=== PATIENT | male | born 1980 ===

== ENCOUNTER 2017-09-14 06:19 | Emergency (ER) | payer MEDICAID ==
[2017-09-14 06:19] VITALS: BMI 36.3
[2017-09-14 06:48] VITALS: RESP 20
--- NOTE | 2017-09-14 08:03 | C.PDOC ---
History Of Present Illness 36 y/o male presents to ED with complaints of congestion, body aches, subjective fever and sore throat for 4 days. Patient states he has been taking ibuprofen with no improvement, reports none taken today. Patient denies abdominal pain, chest pain, neck pain, change in bowel movements or any other complaints at this time. No flu vaccine this year. Time Seen by Provider: 09/14/17 07:32 Chief Complaint (Nursing): Flu-like Symptoms History Per: Patient History/Exam Limitations: no limitations Onset/Duration Of Symptoms: Days Current Symptoms Are (Timing): Still Present Associated Symptoms: Sore Throat, Nasal Congestion Past Medical History Reviewed: Historical Data, Nursing Documentation, Vital Signs Vital Signs: Last Vital Signs Temp 98.9 F 09/14/17 09:16 Pulse 92 H 09/14/17 09:16 Resp 20 09/14/17 09:16 BP 143/80 09/14/17 09:16 Pulse Ox 98 09/14/17 10:06 - Medical History PMH: HTN Surgical History: Appendectomy - [facility] Procedures TETANUS TOXOID ADMINIST (09/28/14) Family History: States: No Known Family Hx - Social History Hx Tobacco Use: No Hx Alcohol Use: No Hx Substance Use: No - Immunization History Hx Tetanus Toxoid Vaccination: No Hx Influenza Vaccination: No Hx Pneumococcal Vaccination: No Review Of Systems Constitutional: Positive for: Fever. Negative for: Chills ENT: Positive for: Nose Congestion Cardiovascular: Negative for: Chest Pain Respiratory: Negative for: Cough, Shortness of Breath Musculoskeletal: Negative for: Neck Pain Skin: Negative for: Rash Physical Exam - Physical Exam Appears: Non-toxic, No Acute Distress Skin: Warm, Dry, No Rash Head: Atraumatic, Normacephalic Eye(s): bilateral: Normal Inspection, EOMI Ear(s): Left: TM Erythema, Right: Normal Nose: Normal Oral Mucosa: Moist Throat: Normal, No Erythema, No Exudate, No Drooling Neck: Normal, Normal ROM, Supple Chest: Symmetrical Cardiovascular: Rhythm Regular Respiratory: Normal Breath Sounds, No Accessory Muscle Use, No Rales, No Rhonchi , No Wheezing Gastrointestinal/Abdominal: Soft, No Tenderness, No Guarding, No Rebound Extremity: Normal ROM Neurological/Psych: Oriented x3, Normal Speech, Normal Cognition ED Course And Treatment O2 Sat by Pulse Oximetry: 98 (RA) Pulse Ox Interpretation: Normal Progress Note: Amoxicillin and Ibuprofen administered. On re-evalaution, patient is resting comfortably, and is in no acute distress. Patient was instructed to follow up with PMD in 1-2 days for further evaluation. Disposition - Disposition Disposition: HOME/ ROUTINE Disposition Time: 08:25 Condition: STABLE Additional Instructions: Follow up with your primary medical doctor or clinic in 2-5 days for further evaluation. Take medications as prescribed. Return to the emergency department at any time if symptoms persist or worsen. Vaya a valenzuela mdico o la clnica en 2-5 jeffries sin falta, para mas evaluacin. [place] los medicamentos tyra indicado. Volver a la david de emergencia en cualquier momento si los sntomas persisten o empeoran. 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 - Scribe Statement The provider has reviewed the documentation as recorded by the Claribelibjoshua Zendejas All medical record entries made by the Claribelibjoshua were at my direction and personally dictated by me. I have reviewed the chart and agree that the record accurately reflects my personal performance of the history, physical exam, medical decision making, and the department course for this patient. I have also personally directed, reviewed, and agree with the discharge instructions and disposition.
[2017-09-14] MEDS ORDERED: Amoxicillin-Clav 500-125 mg Tab PO ONE (09:10)
[2017-09-14 09:18] VITALS: BP 143/80; PULSE 92; TEMP 98.9
[2017-09-14 10:04] VITALS: O2SAT 98
== END 2017-09-14 09:17 | disposition home or self-care (01) ==
LOC: C.ER 06:19
DX: H66.92 Otitis media, unspecified, left ear (principal)

== ENCOUNTER 2018-10-07 16:47 | Emergency (ER) | payer BC, MEDICAID ==
[2018-10-07 16:52] VITALS: BMI 46.7
[2018-10-07 16:54] VITALS: TEMP 98.7; O2SAT 98
[2018-10-07] MEDS ORDERED: Amoxicillin-Clav 875-125 mg Tab PO STA (17:35)
--- NOTE | 2018-10-07 17:37 | C.PDOC ---
History Of Present Illness 37 yo male come in for evaluation of left 4th finger injury sustained yesterday after had blunt trauma " metal fell onto my fingers". Pt noted some bruising over Left 4th finger, pain over the tip. Denies deformity, weakness, sensory or vascular deficit, denies open wounds. Comfortable, not in any apparent distress. Time Seen by Provider: 10/07/18 16:58 Chief Complaint (Nursing): Finger,Hand,&Wrist History Per: Patient Past Medical History Reviewed: Historical Data, Nursing Documentation, Vital Signs Vital Signs: Last Vital Signs Temp 98.7 F 10/07/18 16:52 Pulse 83 10/07/18 16:52 Resp 18 10/07/18 16:52 BP 155/83 H 10/07/18 16:52 Pulse Ox 98 10/07/18 16:52 - Medical History PMH: HTN Denies: Chronic Kidney Disease Surgical History: Appendectomy - [facility] Procedures TETANUS TOXOID ADMINIST (09/28/14) Family History: States: Unknown Family Hx - Social History Hx Tobacco Use: No Hx Alcohol Use: No Hx Substance Use: No - Immunization History Hx Tetanus Toxoid Vaccination: No Hx Influenza Vaccination: No Hx Pneumococcal Vaccination: No Review Of Systems Except As Marked, All Systems Reviewed And Found Negative. Musculoskeletal: Positive for: Hand Pain Skin: Positive for: Bruising Neurological: Negative for: Weakness, Numbness Physical Exam - Physical Exam Appears: Well, Non-toxic, No Acute Distress Skin: Normal Color, Warm Extremity: Normal ROM (FAROM of Left hand), Tenderness (diffuse left 4th finger with diffuse ecchymoses more over palmar aspect. ), Capillary Refill (less than 2sec to left hand), No Deformity, Swelling (distal 4th phalanx, (+) sububgual hematoma 90 %. ) Neurological/Psych: Oriented x3, Normal Speech ED Course And Treatment O2 Sat by Pulse Oximetry: 98 - Other Rad Left 4th finger X-Ray: Interpreted by Me, Viewed By Me Interpretation: (+) comminuted Left 4th distal phalanx Progress Note: Subungual hematoma over left 4th finger drained with needle gauge#18 with bloody ozzing discharge, sterile dressing applied. Aluminium finger splint applied to Left 4th finger. Imaging results review and discussed with pt. Oral abx given. Pt ref. to F/u with hand specialsit in 2-3 days for re-eavl. Return if any new changes. Disposition Counseled Patient/Family Regarding: Studies Performed, Diagnosis, Need For Followup, Rx Given - Disposition Referrals: Alia Lozano MD [Staff Provider] - Disposition: HOME/ ROUTINE Disposition Time: 17:37 Condition: STABLE Additional Instructions: Splint for 4 weeks take medication as prescribed Light duty to left hand Follow up with Hand specialist in2 -3 days for re-evaluation. return if any new changes. Prescriptions: Amoxicillin/Clavulanate [Augmentin 875 MG-125 MG] 1 tab PO BID #14 tab traMADol [Ultram] 50 mg PO TID #10 tab Instructions: Finger Fracture Forms: [facility] ([place]), Work Excuse Print Language: [place] - Clinical Impression Clinical Impression: Finger fracture
[2018-10-07] MEDS ORDERED: Amoxicillin-Clav 875-125 mg Tab PO ONE (17:47)
[2018-10-07 17:56] VITALS: BP 129/85; PULSE 79; RESP 16
--- NOTE | 2018-10-07 18:23 | RAD ---
Date of service: 10/07/2018 PROCEDURE: Left ring finger radiographs. HISTORY: injury COMPARISON: None. TECHNIQUE: AP radiograph of the left hand, as well as spot oblique and lateral images of left ring finger were obtained. FINDINGS: LEFT RING FINGER: Crush injury distal tuft 4th digit. Remainder of the left hand (as seen on the AP view) is grossly unremarkable. JOINTS: Normal. SOFT TISSUES: Soft tissue swelling attests to the acuity of the fracture. OTHER FINDINGS: None. IMPRESSION: Acute, comminuted fracture distal tuft left 4th digit. Concordant results with the preliminary interpretation rendered by the emergency department physician procedure.
== END 2018-10-07 17:55 | disposition home or self-care (01) ==
LOC: C.ER 16:47
DX: S62.635A Displaced fracture of distal phalanx of left ring finger, initial encounter for closed fracture (principal); S60.142A Contusion of left ring finger with damage to nail, initial encounter; W22.8XXA Striking against or struck by other objects, initial encounter